=== PATIENT | female | born 1975 | race Caucasian/White ===

== ENCOUNTER → 2016-10-12 | Outpatient (CLI) | payer OTHER | LOC: FIMAGING 09:33 | DX: Z12.31 Encounter for screening mammogram for malignant neoplasm of breast (principal) | CPT/HCPCS: G0202 ==

== ENCOUNTER → 2018-01-09 | Outpatient (CLI) | payer OTHER | LOC: FIMAGING 14:14 | PROVIDERS: ATTEND Internal Medicine | DX: Z12.31 Encounter for screening mammogram for malignant neoplasm of breast (principal) ==

== ENCOUNTER → 2018-02-14 | Outpatient (CLI) | payer OTHER | LOC: FIMAGING 08:58 | PROVIDERS: ATTEND Internal Medicine | DX: R92.8 Other abnormal and inconclusive findings on diagnostic imaging of breast (principal) ==

== ENCOUNTER → 2019-02-05 | Outpatient (CLI) | payer OTHER | LOC: FIMAGING 12:21 ==

== ENCOUNTER → 2019-02-14 | Outpatient (CLI) | payer OTHER | LOC: FIMAGING 08:15 ==